=== PATIENT | male | born 1980 | race American Indian/Alaskan Native ===

== ENCOUNTER 2018-12-28 13:20 | Emergency (ER) | payer SELFPAY ==
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
[2018-12-28 13:50] VITALS: BP 120/75
[2018-12-28] MEDS ORDERED: IBUPROFEN PO ONE (14:25)
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
--- NOTE | 2018-12-28 14:57 | XRay Report ---
RIGHT HAND, 3 views: History: Right and A mildly comminuted fracture is identified through the fifth metacarpal neck with 50 degrees anterior angulation. No calcified callus is identified. The remaining bony structures and joint spaces are intact. Mild soft tissue swelling. IMPRESSION: Right fifth metacarpal neck fracture with anterior angulation as described.
[2018-12-28] MEDS ORDERED: PERCOCET 5/325 PO ONE (14:58)
== END 2018-12-28 15:11 | disposition home or self-care (01) ==
LOC: ED 13:20
DX: S62.336A Displaced fracture of neck of fifth metacarpal bone, right hand, initial encounter for closed fracture (principal); F17.200 Nicotine dependence, unspecified, uncomplicated; W50.3XXA Accidental bite by another person, initial encounter; Y93.89 Activity, other specified; Y92.89 Other specified places as the place of occurrence of the external cause; Y99.8 Other external cause status

== ENCOUNTER 2019-01-16 20:24 | Emergency (ER) | payer OTHER ==
--- NOTE | 2019-01-16 20:42 | Emergency Department Report ---
Chief Complaint: Sore Throat Stated Complaint: poss strep throat Time Seen by Provider: 01/16/19 20:41 - HPI History of Present Illness: here with partner concerned for sti MSE screening note: Focused history and physical exam performed. Due to findings the following was ordered: ED Disposition for MSE Condition: Stable
[2019-01-16] MEDS ORDERED: ROCEPHIN IM ONE (20:49)
[2019-01-16] MEDS ORDERED: XYLOCAINE 1% MPF 5 mL INFILTRATI ONE (20:49)
[2019-01-16] MEDS ORDERED: ZITHROMAX PO ONE (20:49)
--- NOTE | 2019-01-16 20:51 | Emergency Department Report ---
ED Dysuria HPI - HPI Chief Complaint: Sore Throat Stated Complaint: poss strep throat Time Seen by Provider: 01/16/19 20:41 Duration: 3 Days Severity: Mild Symptoms: Dysuria: Yes, Frequency: No, Flank Pain: No, Fever: No, Hematuria: No, Abdominal Pain: No, Previous UTI's: No Other History: 38 yo here w partner; penile discharge and tingling with urination. ED Review of Systems ROS: Stated complaint: poss strep throat Other details as noted in HPI Comment: All other systems reviewed and negative ED Past Medical Hx - Past Medical History Previous Medical History?: No - Surgical History Past Surgical History?: No - Family History Family history: no significant - Social History Smoking Status: Current Every Day Smoker - Medications Home Medications: Home Medications Medication Instructions Recorded Confirmed Last Taken Type Hydrocodone Bit/Acetaminophen 1 each PO Q4-6H PRN #20 tablet 07/14/13 Unknown Rx [Lortab 7.5-500 mg] Ibuprofen [Motrin] 800 mg PO TID PRN #25 tablet 07/14/13 Unknown Rx HYDROcodone/ACETAMINOPHEN 1 each PO Q6HR PRN #12 tablet 12/28/18 Unknown Rx [Hydrocodone-Acetamin 5-325 mg] Ibuprofen [Ibu] 800 mg PO Q8H PRN #20 tablet 12/28/18 Unknown Rx Dysuria Exam - Exam General: Vital signs noted. No distress. Alert and acting appropriately. Exam: Yes Moist Mucous Membranes, No CVA Tenderness, No Abdominal Tenderness, No Rigidity or Guarding ED Course Vital Signs 01/16/19 20:43 Temperature 98.8 F Pulse Rate 104 H Respiratory 18 Rate Blood Pressure 157/88 O2 Sat by Pulse 99 Oximetry ED Medical Decision Making - Medical Decision Making penile discharge here with partner treated due to public health risk gc/ua pending rocephin and azithromycin in ER Vital Signs 01/16/19 20:43 Temperature 98.8 F Pulse Rate 104 H Respiratory 18 Rate Blood Pressure 157/88 O2 Sat by Pulse 99 Oximetry Critical care attestation.: If time is entered above; I have spent that time in minutes in the direct care of this critically ill patient, excluding procedure time. ED Disposition Clinical Impression: STI (sexually transmitted infection), Penile discharge Disposition: DC- TO HOME OR SELFCARE Is pt being admited?: No Does the pt Need Aspirin: No Condition: Stable Instructions: Safe Sex (ED) Referrals: [facility] [Outside] - 3-5 Days Time of Disposition: 20:50
[2019-01-16 21:45] VITALS: BP 157/88
[2019-01-16 21:54] LABS: Bilirubin,Urine NEG (Negative); Blood,Urine SM (Negative); Color,Urine Yellow (Yellow); Mucus,Urine 1+ /HPF
[2019-01-16 21:59] LABS: WBC,Urine > 182.0 /HPF (0.0-6.0)
== END 2019-01-16 22:00 | disposition home or self-care (01) ==
LOC: ED 20:24
DX: A64 Unspecified sexually transmitted disease (principal); F17.200 Nicotine dependence, unspecified, uncomplicated
CPT/HCPCS: 81001; 96372; 99283; J0696